=== PATIENT | male | born 1965 | race Caucasian/White ===

== ENCOUNTER 2017-12-02 | Inpatient (IN) | payer OTHER ==
[2017-12-03 02:24] VITALS: BP 118/75
[2017-12-03] MEDS ORDERED: SEROPHENE50 MG PO (04:02)
[2017-12-03] MEDS ORDERED: SEROQUEL400 MG PO (04:07)
[2017-12-03] MEDS ORDERED: TRAZODONE HCL50 MG PO (04:08)
[2017-12-03] MEDS ORDERED: GABAPENTIN400 MG PO (04:09)
[2017-12-03] MEDS ORDERED: ACID CONTROL150 MG PO (04:10)
[2017-12-03] MEDS ORDERED: MAALOX MAXIMUM355 ML PO (04:13)
[2017-12-03] MEDS ORDERED: NITROSTAT0.3 MG SL (04:14)
[2017-12-03 08:05] VITALS: BP 95/50
[2017-12-03] MEDS ORDERED: COREG3.125 M1 PO (10:12)
[2017-12-03] MEDS ORDERED: LIPITOR40 MG PO (10:13)
[2017-12-03] MEDS ORDERED: SEROQUEL50 MG PO (10:14)
[2017-12-03] MEDS ORDERED: CARAFATE1 GM PO (10:15)
[2017-12-03] MEDS ORDERED: XARELTO20 MG PO (10:15)
[2017-12-03] MEDS ORDERED: ZOLOFT100 MG PO (10:20)
[2017-12-03 11:50] VITALS: BP 119/85
[2017-12-03 15:34] VITALS: BP 93/59
[2017-12-04 07:59] VITALS: BP 91/54
[2017-12-04 16:10] VITALS: BP 105/72
[2017-12-05 07:38] VITALS: BP 94/58
[2017-12-05 15:38] VITALS: BP 91/55
[2017-12-05 18:53] VITALS: BP 103/69
[2017-12-06 07:24] VITALS: BP 105/65
[2017-12-06 15:20] VITALS: BP 87/51
[2017-12-06 17:54] VITALS: BP 119/72
[2017-12-07 07:18] VITALS: BP 105/61
[2017-12-07 15:29] VITALS: BP 110/67
[2017-12-08 07:40] VITALS: BP 90/59
[2017-12-08 15:46] VITALS: BP 111/68
[2017-12-09 07:20] VITALS: BP 92/55
[2017-12-09] MEDS ORDERED: BENZTROPINE MESY1 MG PO (09:58)
[2017-12-09] MEDS ORDERED: FOLIC ACID1 MG PO (09:58)
[2017-12-09] MEDS ORDERED: Thiamine,Vitamin B1 PO (09:58)
[2017-12-09] MEDS ORDERED: QUETIAPINE FUM100 MG PO (09:58)
[2017-12-09] MEDS ORDERED: SEROQUEL300 MG PO (09:58)
[2017-12-09] MEDS ORDERED: HALDOL2 MG PO (09:59)
[2017-12-09] MEDS ORDERED: HALDOL5 MG PO (09:59)
[2017-12-09] MEDS ORDERED: NALTREXONE HCL50 MG PO (10:03)
== END 2017-12-09 12:53 | disposition home or self-care (01) | DRG 885 ==
LOC: 1WEST → ENRESERV 12-03 00:01 → 1WEST 12-03 01:39
DX: F32.3 Major depressive disorder, single episode, severe with psychotic features (principal); R45.851 Suicidal ideations; F10.20 Alcohol dependence, uncomplicated; F41.9 Anxiety disorder, unspecified; E78.5 Hyperlipidemia, unspecified; K21.9 Gastro-esophageal reflux disease without esophagitis; Z86.711 Personal history of pulmonary embolism
CPT/HCPCS: 97150 GO; 97165 GO

== ENCOUNTER 2018-05-28 13:04 | Emergency (ER) | payer OTHER ==
[~2018-05-28] VITALS: Ht 160 cm; Wt 84.0 kg
[~2018-05-28 13:04] MED LIST: ACID CONTROL150 MG PO; BENZTROPINE MESY1 MG PO; CARAFATE1 GM PO; COREG3.125 M1 PO; FOLIC ACID1 MG PO; GABAPENTIN400 MG PO; HALDOL2 MG PO; HALDOL5 MG PO; LIPITOR40 MG PO; MAALOX MAXIMUM355 ML PO; NALTREXONE HCL50 MG PO; NITROSTAT0.3 MG SL; QUETIAPINE FUM100 MG PO; SEROPHENE50 MG PO; SEROQUEL300 MG PO; SEROQUEL400 MG PO; SEROQUEL50 MG PO; TRAZODONE HCL50 MG PO; Thiamine,Vitamin B1 PO; XARELTO20 MG PO; ZOLOFT100 MG PO
[2018-05-28 13:44] LABS: HEMATOCRIT 50.3 % (38.0-50.0); HEMOGLOBIN 18.2 G/DL (12.5-16.6); MCH 29.9 PG (29.0-34.0); MCHC 36.2 G/DL (30.0-36.0); MCV 82.6 FL (86-99); PLATELET COUNT 308 K/uL (156-360); RBC DIS.WIDTH-CV 11.9 % (11.8-14.6); RBC DIS.WIDTH-SD 35.8 % (39-53); RED BLOOD COUNT 6.09 M/uL (4.00-5.50); WHITE BLOOD COUNT 8.2 K/uL (4.1-10.2)
[2018-05-28 13:53] LABS: CHLORIDE 102 mEq/L (99-109); SODIUM 140 mEq/L (136-147)
[2018-05-28 13:55] LABS: GLUCOSE 108 mg/dL (70-99)
[2018-05-28 13:59] LABS: GFR ESTIMATE (CALCULATED) > 59 mL/min/ (58.99-99999)
[2018-05-28 14:00] LABS: UREA NITROGEN (BUN) 16 mg/dL (9-23)
[2018-05-28 14:05] LABS: TROP-I INTERPRETATION NEGATIVE; TROPONIN-I < 0.01 ng/mL (0.0-0.30)
[2018-05-28 14:59] LABS: ALBUMIN 4.6 g/dL (3.2-4.8)
[2018-05-28 15:02] LABS: TOTAL PROTEIN 7.7 g/dL (6.4-8.3)
[2018-05-28 15:03] LABS: TOTAL BILIRUBIN 0.8 mg/dL (0.0-1.0)
[2018-05-28 15:04] LABS: ALKALINE PHOSPHATASE 122 IU/L (3-129)
[2018-05-28 15:05] LABS: PHOSPHORUS 2.7 mg/dL (2.5-4.9)
[2018-05-28 15:07] LABS: AST (GOT) 13 IU/L (2-34); DIRECT BILIRUBIN 0.2 mg/dL (0.0-0.3)
[2018-05-28 15:08] LABS: ALT (GPT) 24 IU/L (3-49); LIPASE 4 U/L (1.0-51.0)
[2018-05-28 17:24] LABS: TROP-I INTERPRETATION NEGATIVE; TROPONIN-I < 0.01 ng/mL (0.0-0.30)
[2018-05-28 18:40] LABS: SERUM ETHYL ALCOHOL < 10 mg/dL
[2018-05-28] MEDS ORDERED: ZOFRAN4 MG PO (19:37)
[2018-05-28] MEDS ORDERED: ATARAX,VISTARIL50 MG PO (19:37)
[2018-05-28 20:04] VITALS: BP 124/79
== END 2018-05-28 20:13 | disposition home or self-care (01) ==
LOC: EME 13:04
PROVIDERS: Nurse Practitioner Family
DX: R10.9 Unspecified abdominal pain (principal); R07.9 Chest pain, unspecified; R11.2 Nausea with vomiting, unspecified; F10.10 Alcohol abuse, uncomplicated; R42 Dizziness and giddiness; Y90.0 Blood alcohol level of less than 20 mg/100 ml; I10 Essential (primary) hypertension; K21.9 Gastro-esophageal reflux disease without esophagitis; F17.200 Nicotine dependence, unspecified, uncomplicated; Z88.1 Allergy status to other antibiotic agents; Z86.711 Personal history of pulmonary embolism
CPT/HCPCS: 70450; 71046; 71275; 74177; 80048; 80069; 80076; 83690; 84484; 85027; 93005; 99281; 99284; G0480; J1885; J2060; J2405; J2765; J3010; J7030

== ENCOUNTER 2018-06-02 11:31 | Emergency (ER) | payer OTHER ==
[~2018-06-02] VITALS: Ht 160 cm; Wt 83.4 kg
[~2018-06-02 11:31] MED LIST changes: +ATARAX,VISTARIL50 MG PO; +ZOFRAN4 MG PO
[2018-06-02 12:00] LABS: HEMATOCRIT 47.7 % (38.0-50.0); HEMOGLOBIN 17.6 G/DL (12.5-16.6); MCHC 36.9 G/DL (30.0-36.0); MCV 81.3 FL (86-99); PLATELET COUNT 253 K/uL (156-360); RBC DIS.WIDTH-CV 12.1 % (11.8-14.6); RBC DIS.WIDTH-SD 34.9 % (39-53); RED BLOOD COUNT 5.87 M/uL (4.00-5.50); WHITE BLOOD COUNT 6.1 K/uL (4.1-10.2)
[2018-06-02 12:08] LABS: ALBUMIN 4.2 g/dL (3.2-4.8)
[2018-06-02 12:09] LABS: CHLORIDE 107 mEq/L (99-109); POTASSIUM 3.6 mEq/L (3.7-5.4); SODIUM 140 mEq/L (136-147)
[2018-06-02 12:11] LABS: GLUCOSE 108 mg/dL (70-99); TOTAL PROTEIN 7.1 g/dL (6.4-8.3)
[2018-06-02 12:13] LABS: TOTAL BILIRUBIN 0.8 mg/dL (0.0-1.0)
[2018-06-02 12:14] LABS: ALKALINE PHOSPHATASE 112 IU/L (3-129)
[2018-06-02 12:15] LABS: CREATININE 0.9 mg/dL (0.6-1.3); GFR ESTIMATE (CALCULATED) > 59 mL/min/ (58.99-99999)
[2018-06-02 12:16] LABS: AST (GOT) 13 IU/L (2-34); UREA NITROGEN (BUN) 6 mg/dL (9-23)
[2018-06-02 12:18] LABS: ALT (GPT) 18 IU/L (3-49); LIPASE 5 U/L (1.0-51.0)
[2018-06-02 12:55] LABS: APPEARANCE CLEAR ((CLEAR)); BILIRUBIN NEGATIVE; BLOOD NEGATIVE; COLOR YELLOW ((YELLOW)); GLUCOSE (STRIP) NEGATIVE; KETONES NEGATIVE; LEUKOCYTES NEGATIVE; NITRITE NEGATIVE; PROTEIN (STRIP) NEGATIVE; UCUL ADDED? NO
[2018-06-02] MEDS ORDERED: BENTYL20 MG PO (13:19)
[2018-06-02] MEDS ORDERED: REGLAN10 MG PO (13:19)
[2018-06-02 16:37] VITALS: BP 149/87
== END 2018-06-02 16:45 | disposition home or self-care (01) ==
LOC: EME 11:31
PROVIDERS: Nurse Practitioner Family
DX: R10.84 Generalized abdominal pain (principal); R11.2 Nausea with vomiting, unspecified; I10 Essential (primary) hypertension; Z87.891 Personal history of nicotine dependence; Z88.1 Allergy status to other antibiotic agents
CPT/HCPCS: 80053; 81003; 83690; 85027; 99281; 99284; J2405; J2765; J3010; J7030